=== PATIENT | male | born 1935 | race Caucasian/White ===

== ENCOUNTER 2016-09-16 21:29 | Inpatient (IN) | payer MEDICARE, OTHER ==
[~2016-09-16] VITALS: Ht 177.8 cm; Wt 95.4 kg
--- NOTE | ~2016-09-16 | HP ---
PATIENT'S NAME: MARIETTA JIMENEZ [facility] AGE: 81 Y [address] ROOM: [place] [address] LOCATION: GPCU ADMIT DATE: 09/17/2016 History & Physical DISCHARGE DATE: FAMILY PHYSICIAN: Joe Galeas MD ATTENDING PHYSICIAN: KOBE MOHR V DATE OF SERVICE: CHIEF COMPLAINT: Abdominal pain and rash. HISTORY OF PRESENT ILLNESS: The patient is an 81-year-old male whose troubles began after he had fish which he prepared with a seasoning that he has not used before. Several hours after he got the fish and prepared it, he developed colicky mid abdominal/epigastric abdominal pain with some nausea, but no vomiting. He also noted an urticarial rash developing over his abdomen, back, and distal lower extremities. He did not have any chest pain, shortness of breath, diarrhea, palpitations, or diaphoresis associated with this. He also denies any fevers. In the ER, the patient had a detailed workup. An ultrasound of his abdomen showed a large gallstone ball valving in and out with a dilated common bile duct with choledocholithiasis. He had a positive D-dimer and a CT of his chest to rule out pulmonary embolism demonstrated a possible right lingular PE. PAST MEDICAL HISTORY: Significant for benign prostatic hyperplasia with considerable symptoms, which has recently been surgically addressed. Also hypertension, a history of Tate's cyst. SURGERIES: Significant for multiple cystoscopies and prostatectomy. SOCIAL HISTORY: Negative for any active or significant past toxic habits. The patient is still quite active. FAMILY HISTORY: Reviewed and is noncontributory due to a known underlying etiology for his presentation. PATIENT'S NAME: MARIETTA JIMENEZ [facility] AGE: 81 Y [address] ROOM: [place] [address] LOCATION: GPCU ADMIT DATE: 09/17/2016 History & Physical DISCHARGE DATE: FAMILY PHYSICIAN: Joe Galeas MD ATTENDING PHYSICIAN: KOBE MOHR V CURRENT MEDICATIONS: Being compiled. REVIEW OF SYSTEMS: Subsequent to receiving IV contrast for his CAT scan, the patient did develop some hoarseness which is appreciable on exam. PHYSICAL EXAMINATION: VITAL SIGNS: His blood pressure is 110s/60s, heart rate is in the 80s, and saturating 94% on room air. GENERAL: Appears as a well-developed, well-nourished, elderly male, in no acute distress. ENT: No stridor and moist mucous membranes. NEUROLOGICAL: Exam is nonfocal. EYES: Exam shows pupils are equal and reactive to light. SKIN: Exam reveals diffuse confluent urticarial rash over his abdomen, back, distal lower extremities, as well as his shoulders. LUNGS: Exam reveals lungs are clear to auscultation bilaterally and no stridor. HEART: Exam reveals regular rate and rhythm without appreciable murmurs, gallops, or rubs. GI: Abdomen is soft. Slightly tender in right upper quadrant. Normoactive bowel sounds. No rebound tenderness or guarding. VASCULAR: Reveals 2+ pedal pulses. MUSCULOSKELETAL: Exam is unremarkable. PSYCHIATRIC: Exam reveals appropriate mood, cognition, and affect. LABORATORY DATA: Studies done in the ER are significant for lactate is 1.4. AST is 84. Two sets of cardiac enzymes are negative. White count is 13.8, hemoglobin is 16.5, platelets are 209. D-dimer is 1.44. Urinalysis is significant for 50 of blood. EKG shows normal sinus rhythm, slightly high R-waves in leads V2 and V3. Aside from that, EKG is unremarkable. CAT scan shows suspected acute pulmonary embolism within the segmental branch to the inferior segment of the lingula, this is in the area of motion artifact, therefore there is a possibility of false-positive; choledocholithiasis with bile duct dilatation. Additional incidental findings as above. A verbal report on the ultrasound shows a large stone in the gallbladder with choledocholithiasis and common bile duct dilatation. ASSESSMENT AND PLAN: This is an 81-year-old male who will be admitted with: 1. Findings of pulmonary embolism on the CT. At this point, I feel that the actual probability for a PE is quite low, as the patient has no symptoms, no tachycardia, no hypoxia, and his pain was never related to his chest. PATIENT'S NAME: MARIETTA JIMENEZ [facility] AGE: 81 Y [address] ROOM: [place] [address] [facility] ADMIT DATE: 09/17/2016 History & Physical DISCHARGE DATE: FAMILY PHYSICIAN: Joe Galeas MD ATTENDING PHYSICIAN: OKBE MOHR V He has been started on heparin though we will discontinue it and check a V/Q scan in the morning to correlate a possibility of PE to the area where it was noted on the CT. 2. Choledocholithiasis. We will hydrate the patient. At this point, he does not appear to be septic as his procalcitonin is negative. We will provide him with symptomatic support and request Gastroenterology consultation as well as General Surgery consultation in the morning for ERCP/cholecystectomy. 3. Allergic reaction. I believe the patient probably has a combination of an initial allergic urticarial rash from the seasoning and subsequent exacerbation caused by IV contrast. He has received Benadryl and Solu- Medrol in the ER and we will continue him on this regimen until his rash and hoarseness improved. He will be monitored in a progressive care unit with frequent vitals. We will also monitor for any evidence of stridor. If that does develop, we will treat him appropriately with epinephrine and support his airway. 4. Benign prostatic hypertrophy, addressed. 5. Deep venous thrombosis prophylaxis will be pharmacologic once a surgical course is established. Additional management will depend on a clinical course. Time dedicated to this patient's encounter is 35 minutes. MD MAMADOU FULLER/jhonnyl /[id number] D: T: 703 HISTORY & PHYSICAL
--- NOTE | ~2016-09-16 | OR ---
PATIENT'S NAME: MARIETTA JIMENEZ [facility] AGE: 81 Y [address] ROOM: [address] [address] LOCATION: GPCU ADMIT DATE: 09/17/2016 OR/Procedure Report DISCHARGE DATE: 09/21/2016 FAMILY PHYSICIAN: Joe Galeas MD ATTENDING PHYSICIAN: Tony Peraza V SURGEON: Aubrey Kurtz MD DOUGH BRAKER: Shad Mclean PA-C. DATE OF PROCEDURE: 09/20/2016 CORRECTED PATIENT ACCOUNT INFORMATION PER OPERATIONS 09/22/16 AO FAMILY PHYSICIAN: Joe Galeas MD PREOPERATIVE DIAGNOSES: 1. History of choledocholithiasis, status post ERCP. 2. Chronic cholecystitis and cholelithiasis. POSTOPERATIVE DIAGNOSES: 1. History of choledocholithiasis, status post ERCP. 2. Chronic cholecystitis and cholelithiasis. PROCEDURE PERFORMED: Laparoscopic cholecystectomy. ANESTHESIA: General with 30 mL of 0.5% Marcaine. SPECIMEN: Gallbladder with multiple stones. INDICATION: The patient is an 81-year-old gentleman, patient of Dr. Galeas'kirk, who was admitted to the hospital with gallbladder disease, was found to have choledocholithiasis, and underwent ERCP and extraction of the stone. He now presents for gallbladder removal as his ultrasound does show residual cholelithiasis. The patient was incidentally scheduled today for an incisional hernia repair of his umbilicus; however, the defect is large enough that it will require mesh placement, and we talked to the patient and will plan on performing gallbladder removal at this setting and delay the incisional hernia repair. DESCRIPTION OF PROCEDURE: After informed consent, the patient was taken to the operating room. After general endotracheal anesthesia, the patient's abdomen was prepped and draped into a sterile field. A time-out was performed. We identified the patient, planned procedure, and preop antibiotic administration. The incisional hernia at the umbilicus did reduce. In the epigastrium, above the fascial defect, we made a small incision after injection of local anesthetic, put a Veress needle through the fascia into the peritoneal cavity, created pneumoperitoneum, placed a 10 mm camera into the abdomen, and had safe entry. There was omentum up into the hernia sac. The remaining trocars were placed in standard position. The gallbladder was pale. PATIENT'S NAME: MARIETTA JIMENEZ [facility] AGE: 81 Y [address] ROOM: [place] [address] [facility] ADMIT DATE: 09/17/2016 OR/Procedure Report DISCHARGE DATE: 09/21/2016 FAMILY PHYSICIAN: Joe Galeas MD ATTENDING PHYSICIAN: Tony Peraza V It was a very fatty layered hepatoduodenal ligament which had to be carefully stripped down until we exposed the cystic duct and cystic artery. They were individually clipped x4 and divided with one clip remaining on the specimen side. The gallbladder was then removed from the liver bed with electrocautery and brought out through the supraumbilical incision. We irrigated until clear. Hemostasis noted. We repaired both midline fascial defects with 0 Vicryl, skin closed with subcuticular 4-0 Vicryl. Steri-Strips and sterile dressings applied. The patient tolerated the procedure well, transferred to the recovery room in stable condition. AUBREY KURTZ MD WTS/modl /[id number] CORRECTED PATIENT ACCOUNT INFORMATION PER OPERATIONS 09/22/16 AO d: 09/20/16 1806 t: 10/04/16 1741, OPERATIVE SUMMARY
--- NOTE | ~2016-09-16 | CON ---
PATIENT'S NAME: MARIETTA JIMENEZ [facility] AGE: 81 Y [address] ROOM: [place] [id number] LOCATION: GPCU ADMIT DATE: 09/17/2016 Consultation DISCHARGE DATE: FAMILY PHYSICIAN: Joe Galeas MD ATTENDING PHYSICIAN: KOBE MOHR V DATE OF CONSULTATION: 09/17/2016 REFERRING PHYSICIAN: Alton Mckeon MD REASON FOR CONSULTATION: Epigastric pain, dilated common bile duct, and abnormal LFTs liver function tests. HISTORY OF PRESENT ILLNESS: The patient is a pleasant 81-year-old white male, who presented to the Emergency Room yesterday with complaints of acute epigastric pain. The pain started at 6 p.m. last night. He remembers having some fried food prior to that. This was also accompanied by what he calls hives. This was essentially itching. There was no fever or chills. He had mild nausea, but no vomiting. He continued to have the pain and was brought to the hospital. He was sent for a higher level of care. He was found to have a dilated common bile duct to 17 mm. His LFTs liver function tests were also elevated. We have been consulted. PAST MEDICAL HISTORY: Significant for 1. Hypertension. 2. Gastroesophageal reflux disease. 3. Benign prostatic hypertrophy. 4. He did have E. coli sepsis in fall of 2015. This required prolonged hospitalization. PAST SURGICAL HISTORY: Significant for prostatectomy. This was a robotic-assisted laparoscopic prostatectomy. FAMILY HISTORY: Significant for hypertension in the family. SOCIAL HISTORY: Marital Status: He lives at his home with his . Occupational History: He has been a [employer]re[employer] throughout his life. PATIENT'S NAME: MARIETTA JIMENEZ [facility] AGE: 81 Y [address] ROOM: [address] [address] LOCATION: GPCU ADMIT DATE: 09/17/2016 Consultation DISCHARGE DATE: FAMILY PHYSICIAN: Joe Galeas MD ATTENDING PHYSICIAN: KOBE MOHR V ALLERGIES: TO IODINATED CONTRAST, SULFA, AND MORPHINE. CURRENT MEDICATIONS: Include 1. Irbesartan. 2. Amlodipine. 3. Ketoconazole cream. 4. Acetaminophen with codeine p.r.n. 5. Acetaminophen Extra Strength p.r.n. PHYSICAL EXAMINATION: GENERAL: He is alert and awake. He appears to be in no acute distress. His pain is rated at about 1. No pallor. No icterus. VITAL SIGNS: Showed temperature of 98.3, pulse of 98, respiratory rate of 18, and blood pressure of 152/74. HEAD AND ENT: Oral cavity is normal. Nasal passages are clear. NECK: Supple. No masses are felt. No thyromegaly is felt. CARDIOVASCULAR: S1 and S2. No carotid bruits are heard. CHEST: Clear to auscultation bilaterally. No wheezing. No rhonchi. ABDOMEN: He has a fairly significant umbilical hernia. It does not seem to be incarcerated. He is tender in the epigastrium. There is no rigidity, guarding, or rebound. MUSCULOSKELETAL: No obvious deformities were seen. NEUROLOGICAL: Grossly nonfocal. LABORATORY DATA AND DIAGNOSTIC STUDIES: Abdominal ultrasound showed cholelithiasis with a large 3-cm mobile stone. Common bile duct was dilated to 17 mm. Choledocholithiasis is also a possibility. He did have a PE pulmonary embolism protocol CT done. Initially, it was negative for pulmonary embolism. However, when we discussed this further with the radiologist, it appears he does have documented CBD common bile duct stones on the CT scan. I had ordered an MRCP initially, but this was canceled in view of this finding. His white cell count WBC is 17.3, hemoglobin is 17.4, hematocrit is 51.7, and platelet count is 217. Sodium of 141, potassium of 4.1, chloride of 107, bicarbonate of 21, BUN of 23, creatinine of 1.2, total bilirubin of 3.0, ALT of 266, AST of 269, and alkaline phosphatase of 103. UA urinalysis with microscopy showed 2 to 5 wbc's. PATIENT'S NAME: MARIETTA JIMENEZ [facility] AGE: 81 Y [address] ROOM: [place] [address] LOCATION: GPCU ADMIT DATE: 09/17/2016 Consultation DISCHARGE DATE: FAMILY PHYSICIAN: Joe Galeas MD ATTENDING PHYSICIAN: KOBE MOHR V CK-MB was negative. ProBNP is less than 0.29. Helicobacter pylori is positive. IMPRESSION AND RECOMMENDATIONS: The patient has a history of gallstone. Now presenting with a dilated common bile duct. The CT findings are consistent with common bile duct stones. In view of this, the patient will be requiring an ERCP endoscopic retrograde cholangiopancreatography. The procedure of ERCP endoscopic retrograde cholangiopancreatography was explained in detail to the patient. All the risks including, but not limited to bleeding, infection, and possible need for surgery were explained. Acute pancreatitis was also explained as well as the risk of anesthesia was explained. Informed consent was then obtained. We will be proceeding with an ERCP endoscopic retrograde cholangiopancreatography by Dr Velez. Patient aware of this. SHANELF MD EMANI BILLINGS/kaylen /[id number] d: 09/17/162030 t: 09/18/16 1552, CONSULTATION REPORT
--- NOTE | ~2016-09-16 | DS ---
PATIENT'S NAME: MARIETTA JIMENEZ [facility] AGE: 81 Y [address] ROOM: [id number] [place], [place] [address] LOCATION: GPCU ADMIT DATE: 09/17/2016 Discharge Summary DISCHARGE DATE: 09/21/2016 FAMILY PHYSICIAN: Joe Galeas MD ATTENDING PHYSICIAN: Tony Peraza V PRINCIPAL DISCHARGE DIAGNOSIS: Choledocholithiasis. SECONDARY DIAGNOSES: 1. Cholecystitis, chronic. 2. Abdominal pain. 3. Rash. 4. Allergic reaction to morphine. 5. Elevated D-dimer at 1.44. 6. Negative CT/PE protocol. 7. Hypertension. 8. Benign prostatic hypertrophy. 9. Gastroesophageal reflux disease. CONSULTATIONS: 1. Gastroenterology, Dr. Ace, on 09/17/2016. 2. General Surgery, 09/17/2016, Dr. Washington. PROCEDURES: 1. Laparoscopic cholecystectomy on 09/20/2016. 2. ERCP on 09/18/2016 large ampulla stone extracted, dilated common bile duct with wide sphincterotomy done, free drainage was noted, and no immediate complications. BRIEF HISTORY: Mr. Jimenez is a very pleasant 81-year-old male who remains very active. He reports that he became ill after eating fish that he prepared with a new seasoning, he developed abdominal pain, mostly in the epigastrium, with nausea, but no vomiting, and also developed an urticarial rash over his lower abdomen, back, and distal lower extremities. He presented to the emergency room, where an ultrasound of the abdomen showed a large gallstone valving in and out with a dilated common bile duct and choledocholithiasis. There was some initial suspicion for PE on his CT; however, he is low probability and was reread and confirmed by the radiologist as negative. He was seen by Dr. Ace for his bile duct stone. The patient did well after the sphincterotomy and continued on Levaquin and Flagyl. He was taken for a lap issa on 09/20/2016 and did very well. Yesterday PATIENT'S NAME: MARIETTA JIMENEZ [facility] AGE: 81 Y [address] ROOM: [id number] [place], [place] [address] LOCATION: GPCU ADMIT DATE: 09/17/2016 Discharge Summary DISCHARGE DATE: 09/21/2016 FAMILY PHYSICIAN: Joe Galeas MD ATTENDING PHYSICIAN: Tony Peraza V afternoon, after the surgery, he was eating a regular diet and planned to walk in the [place]. He stayed afebrile with vital signs stable and ready to go home. His white blood cell count yesterday was 7.8 with hemoglobin of 14.2, hematocrit 43.9, and platelets 147,000. His electrolytes showed sodium 140, potassium 3.9, chloride 109, CO2 25, BUN 17, creatinine 0.8, eGFR greater than 60, glucose 97, his ALT was 93 whereas his AST was 23, and his alkaline phosphatase was 68. The patient is ready for discharge. INSTRUCTIONS AT DISCHARGE: 1. Diet: Heart healthy. I did advise also that he should avoid alcohol intake if he is going to take Tylenol. 2. Activity: No lifting greater than 20 pounds for 3 weeks. He can remove his dressing in 2-3 days. 3. He is to follow up with Dr. Washington in 10 days. He has an appointment at 9:45 on 10/02/2016. 4. He is to see Dr. Joe Galeas within 1 week from discharge. 5. I explained to him he should call Dr. Galeas or Dr. Washington if he develops fever, chills, or sweats. MEDICATIONS AT DISCHARGE: 1. Amlodipine 5 mg p.o. daily. 2. Nizoral cream applied to his forehead rash daily. 3. Pantoprazole 40 mg p.o. daily, he can stop this in 30 days if he does not need this for his GERD or continue it as per his PCP. 4. Avapro 300 mg p.o. at h.s. 5. Tylenol p.r.n. for pain with the caveat of avoiding with alcohol and surgeons gave him a prescription for Kelford 5/325 1-2 p.o. every 4 hours, #30, no refills. CONDITION AT DISCHARGE: Good. Less than 30 minutes was spent on total discharge with examining the patient etc. LES CHAMPAGNE MD LM/kaylen PATIENT'S NAME: MARIETTA JIMENEZ [facility] AGE: 81 Y [address] ROOM: [place] [address] [facility] ADMIT DATE: 09/17/2016 Discharge Summary DISCHARGE DATE: 09/21/2016 FAMILY PHYSICIAN: Joe Galeas MD ATTENDING PHYSICIAN: Tony Peraza V /[id number] d: 09/22/16 0501 t: 09/25/16 1425, DISCHARGE SUMMARY
--- NOTE | ~2016-09-16 | CON ---
PATIENT'S NAME: MARIETTA JIMENEZ [facility] AGE: 81 Y [address] ROOM: [place] [address] LOCATION: GPCU ADMIT DATE: 09/17/2016 Consultation DISCHARGE DATE: FAMILY PHYSICIAN: Joe Galeas MD ATTENDING PHYSICIAN: KBOE MOHR V DATE OF CONSULTATION: 09/18/2016 REFERRING PHYSICIAN: Alton Mckeon MD REASON FOR CONSULTATION: Choledocholithiasis. HISTORY OF PRESENT ILLNESS: Marietta is an 81-year-old male who states that he developed epigastric abdominal pain after eating fried fish. He denies any nausea or vomiting. Denies any jaundice. The patient presented to the emergency room on the evening of September 16. Evaluation included lab work that showed a white blood cell count mildly elevated at 13.8. Total bilirubin 1.2, alkaline phosphatase 87, AST 84, ALT 52. The patient had an ultrasound of the abdomen done that showed a large mobile 3 cm gallstone. Gallbladder wall thickening at 5 mm with no pericholecystic fluid seen. The biliary tree was abnormal with dilated common bile duct measuring 17 mm. Pancreas was obscured by bowel gas. His amylase, lipase were normal. The patient was admitted under the care of the hospitalist and Gastroenterology was consulted. Plans for an MRCP were made, but the patient subsequently had a CT of the chest and according to Dr. Ace's notes, there was concern for choledocholithiasis and therefore MRCP was not performed. Arrangements were made for an ERCP today and General Surgery was consulted. The patient states that he has seen Dr. Washington recently for an umbilical hernia. The umbilical hernia was repaired previously by Dr. Dennison at the time of his prostate surgery. The patient is actually scheduled for an incisional hernia repair on September 20 at [facility]. The patient denies any prior issues with abdominal pain, nausea, vomiting, bloating, jaundice etc. He has had prior abdominal procedures including the robotic-assisted laparoscopic simple prostatectomy with umbilical hernia repair and appendectomy. PAST MEDICAL HISTORY: ALLERGIES: INCLUDE CONTRAST MEDIA, SULFA, AND MORPHINE. MEDICATIONS: PATIENT'S NAME: MARIETTA JIMENEZ [facility] AGE: 81 Y [address] ROOM: [place] [id number] LOCATION: GPCU ADMIT DATE: 09/17/2016 Consultation DISCHARGE DATE: FAMILY PHYSICIAN: Joe Galeas MD ATTENDING PHYSICIAN: KOBE MOHR V Medications at home include; 1. Tylenol extra-strength. 2. Tylenol with codeine. 3. Norvasc 5 mg p.o. at bedtime. 4. Avapro 300 mg p.o. q.p.m. 5. Nizoral cream 30 g one applicator topically daily. ILLNESSES: Include hypertension, benign prostatic hyperplasia, and history of Tate's cyst. OPERATIONS: Include robotic-assisted laparoscopic prostatectomy, multiple cystoscopies, appendectomy, and colonoscopy. SOCIAL HISTORY: The patient is . Lives in [place]. He quit smoking 60 years ago. He consumes alcohol approximately two alcoholic beverages per night. FAMILY HISTORY: Father from myocardial infarction. Mother after having a lung nodule biopsied which apparently was negative for cancer. REVIEW OF SYSTEMS: Per HPI. PHYSICAL EXAMINATION: VITAL SIGNS: Temperature is 98.0, blood pressure 149/77, pulse 74, respirations 22. GENERAL: An 81-year-old male who is alert, oriented, pleasant, cooperative. EYES EARS, NOSE, AND THROAT: Showed poor dentition. LUNGS: Clear. HEART: Regular. ABDOMEN: Has active bowel sounds. Abdomen is soft, nontender in the epigastric right upper quadrant. He does have scars consistent with his prior robotic prostatectomy. He has a midline incision near the umbilicus which shows an incisional hernia with the fascial defect of approximately 4 to 5 cm. Soft, reducible. EXTREMITIES: The patient appears to move his extremities equally. LABORATORY DATA: Lab work today shows white blood cell count 13.5, hemoglobin 14.1, hematocrit 42.5, platelets a 163, his white blood cell count had increased to 17.3 yesterday. CMS shows sodium 141, potassium 4.4, chloride 108, CO2 24, glucose 149, BUN 26, creatinine 1.0. Total bilirubin is down to 1.5 from 3.0 PATIENT'S NAME: MARIETTA JIMENEZ [facility] AGE: 81 Y [address] ROOM: [id number] [place], [place] [address] LOCATION: GPCU ADMIT DATE: 09/17/2016 Consultation DISCHARGE DATE: FAMILY PHYSICIAN: Joe Galeas MD ATTENDING PHYSICIAN: KOBE MOHR V yesterday, alkaline phosphatase is 77, compared to 103, yesterday, AST is 105 compared to 369 yesterday, and ALT is 215 compared to 266. Again, amylase was 41, lipase 100. ASSESSMENT: An 81-year-old male with: 1. Choledocholithiasis. 2. Incisional hernia at the umbilicus. PLAN: I discussed with the patient the findings on the ultrasound and CT along with lab work. I discussed the plan for an ERCP today with Dr. Ace. I discussed the indications to remove the gallbladder in order to prevent this from happening again in the future. I discussed the operation along with risks of bleeding, infection, injury to other structures, heart problems, lung problems etc. I discussed that most likely, we would not fix the incisional hernia at this time as this will require mesh and we did not want the mesh to be seated with infection from the gallbladder. Dr. Washington then evaluated the patient and agreed that we should proceed with the gallbladder first with plans to repair the incisional hernia in approximately one month once he is recovered and healed up. The patient was in understanding and agreement. We will plan to proceed with laparoscopic cholecystectomy on September 20, 2016. We will delay the incisional hernia for approximately one month. Dr. Washington evaluated the patient, was involved in the assessment and plan, and was available for supervision. JONATHAN AYOUB PA-C FOR MD JUDITH WOLFF/kaylen /[id number] d: 09/18/162127 t: 10/04/16 1743, CONSULTATION REPORT
--- NOTE | ~2016-09-16 | ER ---
PATIENT'S NAME: MARIETTA JIMENEZ [facility] AGE: 81 Y [address] ROOM: [place] [address] LOCATION: [facility] ADMIT DATE: 09/16/2016 ER/Outpatient Report DISCHARGE DATE: FAMILY PHYSICIAN: Joe Galeas MD ATTENDING PHYSICIAN: Darell Limon Admission date and time are documented in the medical record. I saw the patient at 2150 hours. CHIEF COMPLAINT: Epigastric pain. HISTORY OF PRESENT ILLNESS: The patient is an 81-year-old male who came in with epigastric pain for about 3 hours with acute onset. Some mild nausea, but no vomiting. No diarrhea. Does not radiate through to his back. No chest pain or shortness of breath. He has a little bit of heartburn reflux sensation. Does have a history of hypertension, but no history of known coronary artery disease, congestive heart failure. No history of lung problems with asthma or COPD. I think the patient thinks he may have gallstones. No lightheadedness, dizziness, syncope, or near syncope. No fall or trauma. No headache, eyes, ears, nose, throat, neck, or spine pain. No recent colds, coughs, flus, fever, chills, or sweats. No joint or muscle swelling, redness, or pain. The patient does have urticarial rash in his left axilla radiating down the lateral aspect of his left chest wall. The patient states that he ate fish tonight and he put some type of seasoning on the fish that he has never used before and he thinks he may have allergic reaction to that. No history of neuro changes, psych issues, or endocrine problems. HOME MEDICATIONS: See attached medication list. ALLERGIES: SULFA. SOCIAL HISTORY: Nonsmoker. Does drink alcohol on a fairly regular basis. SIGNIFICANT PAST MEDICAL HISTORY: Hypertension, urosepsis, and benign prostatic hypertrophy. OPERATIONS: Right shoulder surgery, appendectomy, cystoscopy, prostatectomy, and umbilical herniorrhaphy. PATIENT'S NAME: MARIETTA JIMENEZ [facility] AGE: 81 Y [address] ROOM: [place] [address] LOCATION: [facility] ADMIT DATE: 09/16/2016 ER/Outpatient Report DISCHARGE DATE: FAMILY PHYSICIAN: Joe Galeas MD ATTENDING PHYSICIAN: Darell Limon REVIEW OF SYSTEMS: All systems reviewed by me are negative with the exception of those discussed in the history of the present illness. PHYSICAL EXAMINATION: VITAL SIGNS: Temperature 98, pulse 74, respirations 16, blood pressure 201/101, and O2 sat on room air is 93%. HEAD: Normocephalic. EYES, EARS, NOSE, THROAT: Clear. Mucous membranes moist. NECK: Negative. SPINE: Negative. LUNGS: Clear. No rales, rhonchi, or wheezes. HEART: Regular. Pulses are palpable. No chest wall or ribcage pain to palpation. ABDOMEN: Soft. Epigastric tenderness to palpation. No true guarding or rigidity. No rebound tenderness. No distention. Bowel tones present. No organomegaly or abnormal mass palpable. EXTREMITIES: No peripheral edema, cyanosis, or deformity. NEUROVASCULAR: Intact. SKIN: The patient has urticarial rash on the left lateral chest wall up into the axilla, pruritic. LABORATORY DATA: EKG showed sinus rhythm. No acute ST-elevation, ischemic change, or arrhythmia x2, 2 hours apart. Cardiac enzymes were normal x2, 2 hours apart. CPK was normal x2, 2 hours apart. Urine showed 2-5 whites, 10-20 reds, 0-2 epithelial cells, negative bacteria, 1+ mucus per high-powered field, negative nitrites, and 30 protein on dipstick. Chest x-ray showed no acute infiltrate or changes. We will review x-ray with the radiologist. Procalcitonin was less than 0.05. CRP was less than 0.29. Pro-BNP was 222. H. pylori was positive. CMS was normal except for an elevated glucose 141, elevated AST of 84, magnesium was 2.0. D-dimer was elevated at 1.44. White count was 13,800, 75 segs, 14 lymphs, 9 monos, 1 eo, hemoglobin is 16.5 with hematocrit 51.0, and platelet count is 209,000. PTT was 25. Pro-time is 10.7 with an INR 1.0. Lactate was 1.4. I went ahead with ultrasound of the gallbladder that showed a large stone ball valving in the gallbladder with some mildly thickened gallbladder wall. No pericholecystic fluid. Common duct was dilated. See Radiology report. We did go ahead because of the elevated D-dimer with a CT scan of the chest with PE protocol. The radiologist read it out as suspected acute pulmonary embolism within the segmental branch of the inferior segment of the lingula. Also, there was choledocholithiasis with bile duct dilatation. See dictated transcribed report. EMERGENCY DEPARTMENT COURSE: I did start the patient on IV normal saline, fluids. I did give him morphine PATIENT'S NAME: MARIETTA JIMENEZ [facility] AGE: 81 Y [address] ROOM: [place], [place] [address] LOCATION: [facility] ADMIT DATE: 09/16/2016 ER/Outpatient Report DISCHARGE DATE: FAMILY PHYSICIAN: Joe Galeas MD ATTENDING PHYSICIAN: Darell Limon for pain, Zofran for nausea, Benadryl for the rash and pruritus, Solu-Medrol for the rash and pruritus, and Protonix 40 mg for his abdominal pain. IMPRESSION: 1. Epigastric pain, most likely secondary to choledocholithiasis, cholelithiasis, thickened gallbladder wall, with a large stone ball valving in the gallbladder neck. The patient had positive gallbladder ultrasound and positive CT scan. 2. Pulmonary embolism with shortness of breath. Positive CT scan with pulmonary embolus protocol of the chest. 3. Urticarial hives, etiology uncertain, but possibly related to some seasoning use on some fish that he ate tonight. 4. Positive H. pylori, may have possible peptic ulcer disease or gastritis. 5. Hypertension. 6. Recent history of urosepsis, no evidence of infective processes on evaluation tonight. PLAN: Discussed the patient with Dr. Peraza, hospitalist. Dr. Peraza had come into the emergency room to evaluate the patient and we will place the patient in the hospital. I did start the patient on heparin IV per PE protocol. I did give the patient some Protonix for his stomach problems. Question would be whether he needs to be on some antibiotics because of his positive H. pylori test. Most likely, we will need to have some type of procedure such as an ERCP and cholecystectomy. Continue treatment of his hypertension. We will hydrate the patient and use morphine for pain. Discussion ensued with the patient concerning my findings and recommendations, he understands. MD NAFISA SHEN/kaylen /[id number] d: 09/17/16 0219 t: 09/17/16 1812, OUTPATIENT REPORT
[~2016-09-16 21:29] MED LIST: ALEVE220 MG PO; AUGMENTIN500 MG PO; AUGMENTIN875 MG PO; AVAPRO300 MG PO; CEFTIN500 MG PO; CIPRO500 MG PO; COLACE100 MG PO; FLOMAX0.4 MG PO; FLORASTOR250 MG PO; KEFLEX250 MG PO; KEFLEX500 MG PO; MILK OF MA400 MG/5 M PO; NEOSPORIN1 PKT TOP; NIZORAL30 GM TOP; NORCO 5-325 MG1 TAB PO; NORVASC5 MG PO; PRILOSEC20 MG PO; TYLENOL325 MG PO
[2016-09-16 21:50] LABS: BASOPHIL % 0.3 %; EOSINOPHIL # 0.1 K/uL (0.0-0.5); EOSINOPHIL % 0.9 %; HEMOGLOBIN 16.5 g/dL (11.0-16.0); IMMATURE GRANULOCYTE # 0.1 K/uL (0.0-0.3); IMMATURE GRANULOCYTE % 0.5 %; LYMPHOCYTE % 14.2 %; MCH 28.4 pg (27.0-34.0); MCHC 32.4 gm/dL (32.0-36.5); MCV 87.8 fl (83.0-98.0); MONOCYTE # 1.2 K/uL (0.0-1.0); MONOCYTE % 8.7 %; MPV 8.7 fl (9.4-12.4); NEUTROPHIL # (ANC) 10.4 K/uL (1.4-9.0); NEUTROPHIL % 75.4 %; NRBC % 0 /100WBC (0-0.00); PLATELET COUNT 209 K/uL (150-450); RBC 5.81 M/uL (3.50-5.50); RDW-CV 14.4 % (11.9-14.6); WBC 13.8 K/uL (4.0-11.0)
[2016-09-16 22:00] LABS: PROTIME 10.7 SECONDS (9.6-11.1); PTT 25 SECONDS (25-32)
[2016-09-16 22:11] LABS: ALBUMIN 3.6 gm/dL (3.5-5.0); ALK PHOS 87 IU/L (33-138); ALT 52 IU/L (12-78); ANION GAP 15.2 (10.0-19.0); AST 84 IU/L (10-40); BLOOD UREA NITROGEN 19 mg/dL (6-24); CALCIUM 8.7 mg/dL (8.5-10.5); CHLORIDE 106 mMol/L (96-110); CO2 26 mMol/L (22-32); CPK 116 IU/L (35-332); CREATININE 1.1 mg/dL (0.6-1.3); ESTIMATED GFR (MDRD EQUATION) > 60; POTASSIUM 4.2 mMol/L (3.7-5.1); SODIUM 143 mMol/L (135-145); TOTAL BILIRUBIN 1.2 mg/dL (0.0-1.5); TOTAL PROTEIN 7.6 g/dL (6.0-8.4)
[2016-09-17 00:11] LABS: CPK 91 IU/L (35-332)
[2016-09-17 00:16] LABS: BILIRUBIN URINE NEGATIVE (NEGATIVE); BLOOD URINE 50 /UL (NEGATIVE); COLOR URINE YELLOW (YELLOW); GLUCOSE URINE NEGATIVE (NEGATIVE); KETONE URINE NEGATIVE (NEGATIVE); LEUKOCYTES URINE 25 /UL (NEGATIVE); NITRITE URINE NEGATIVE (NEGATIVE); PROTEIN URINE 30 mg/dL (NEGATIVE); SPEC GRAVITY URINE 1.015 (1.003-1.035); TURBIDITY URINE CLEAR (CLEAR); UROBILINOGEN URINE 4 mg/dL (NORMAL)
[2016-09-17 00:19] LABS: BACTERIA URINE NEGATIVE (NEGATIVE); EPITHELIAL URINE 0-2 #/HPF (NEGATIVE); HYALINE CAST URINE RARE #/LPF (NEGATIVE); MUCUS URINE 1+ (NEGATIVE)
--- NOTE | 2016-09-17 03:52 | NUR ---
PT ARRIVED FROM ED VIA WC ON 2L O2. VSS afebrile. hg/wt taken. upon skin assessment pt present with hives again. hives to bilat feet, backs of bilat arms, chest, ribs, and bilat groins-md ronquillo notified. large umbilical hernia present. bowel sounds active and present.
[2016-09-17 04:51] LABS: HEMATOCRIT 51.7 % (33.0-50.0); HEMOGLOBIN 17.4 g/dL (11.0-16.0); MCH 29.2 pg (27.0-34.0); MCHC 33.7 gm/dL (32.0-36.5); MCV 86.9 fl (83.0-98.0); MPV 8.6 fl (9.4-12.4); PLATELET COUNT 217 K/uL (150-450); RBC 5.95 M/uL (3.50-5.50); RDW-CV 14.5 % (11.9-14.6)
[2016-09-17 04:53] LABS: WBC 17.3 K/uL (4.0-11.0)
[2016-09-17 05:09] LABS: ALBUMIN 3.2 gm/dL (3.5-5.0); ANION GAP 17.1 (10.0-19.0); CALCIUM 8.5 mg/dL (8.5-10.5); CREATININE 1.2 mg/dL (0.6-1.3); MAGNESIUM 1.9 mg/dL (1.3-2.6); PHOSPHORUS 3.6 mg/dL (2.5-4.9); POTASSIUM 4.1 mMol/L (3.7-5.1); TOTAL PROTEIN 6.7 g/dL (6.0-8.4)
[2016-09-17 05:25] LABS: ABSOLUTE NEUTROPHIL CT (ANC) 16.1 K/uL (1.4-9.0); BANDED NEUTROPHIL # 3.1 K/uL (0.0-0.1); BANDED NEUTROPHILS % 18 %; LYMPHOCYTE # 0.2 K/uL (0.8-4.0); LYMPHOCYTE % 1 %; SEGMENTED NEUTROPHIL % 75 %
--- NOTE | 2016-09-17 05:36 | NUR ---
PT ARRIVED FROM ED FOR ABD PAIN-GALL STONES AND HIVES. VSS ON 2L, AFEBRILE. PT STATES HIVES WERE STARTING TO GO AWAY IN ED, CAME BACK POST CT ABD/CHEST OR MORPHINE (NOT SURE WHAT MADE THEM COME BACK), GIVEN BENADRYL (HAS RECEIVED 100MG SINCE COMING TO ED), SOLUMEDEROL (185 SINCE COMING TO ED), PROTONIX, AND PEPCID FOR ALLERGIC REACTION OF UNKOWN ORIGIN. PT STATES HE COOKED DINNER WITH NEW SEASONING AND POST DINNER HAD ABD PAIN AND HIVES. PT ARRIVED TO FLOOR AND STATED HIVES WERE COMING BACK AND WAS STARTING TO ITCH ALL OVER- MD MADE AWARE MEDS GIVEN PER ORDERS. PT WAS ON HEPARIN GTT FOR PE PROTOCOL-WAS D/C'D UNCLEAR CT CHEST- PT TO HAVE VQ SCAN TODAY. TO HAVE DOPPLERS WELL TO R/O DVT. CON'T ON NS AT 100 IN LAC IV. STAND AT BEDSIDE TO URINATE-HAS NOT VOIDED FOR ME. LARGE UMBILICAL HERNIA PRESENT. NPO PLAN: GI CONSULT POSSIBLE ERCP
[2016-09-17] MEDS ORDERED: TYLENOL EXTRA500 MG PO (09:10)
[2016-09-17] MEDS ORDERED: TYLENOL WITH C1 EACH PO (09:10)
--- NOTE | 2016-09-17 17:33 | NUR ---
PATIENT IS PLANNING TO HAVE AN ERCP IN AM. IS ABLE TO HAVE A CLEAR LIQUID DIET UNTIL 0400 09/18/16. PATIENT IS UP WITH 1 ASSIST.
[2016-09-18 03:51] LABS: HEMATOCRIT 42.5 % (33.0-50.0); HEMOGLOBIN 14.1 g/dL (11.0-16.0); MCH 29.1 pg (27.0-34.0); MCHC 33.2 gm/dL (32.0-36.5); MCV 87.6 fl (83.0-98.0); MPV 8.8 fl (9.4-12.4); PLATELET COUNT 163 K/uL (150-450); RBC 4.85 M/uL (3.50-5.50); RDW-CV 14.7 % (11.9-14.6); WBC 13.5 K/uL (4.0-11.0)
[2016-09-18 04:08] LABS: ALBUMIN 2.9 gm/dL (3.5-5.0); ALK PHOS 77 IU/L (33-138); ALT 215 IU/L (12-78); ANION GAP 13.4 (10.0-19.0); AST 105 IU/L (10-40); BLOOD UREA NITROGEN 26 mg/dL (6-24); CALCIUM 8.1 mg/dL (8.5-10.5); CHLORIDE 108 mMol/L (96-110); CO2 24 mMol/L (22-32); ESTIMATED GFR (MDRD EQUATION) > 60; POTASSIUM 4.4 mMol/L (3.7-5.1); SODIUM 141 mMol/L (135-145); TOTAL PROTEIN 6.1 g/dL (6.0-8.4)
[2016-09-18 04:09] LABS: TOTAL BILIRUBIN 1.5 mg/dL (0.0-1.5)
[2016-09-18 04:58] LABS: ABSOLUTE NEUTROPHIL CT (ANC) 12.2 K/uL (1.4-9.0); BANDED NEUTROPHIL # 4.7 K/uL (0.0-0.1); BANDED NEUTROPHILS % 35 %; LYMPHOCYTE # 0.9 K/uL (0.8-4.0); LYMPHOCYTE % 7 %; MONOCYTE # 0.4 K/uL (0.0-1.0); SEGMENTED NEUTROPHIL # 7.4 K/uL (1.4-9.0); SEGMENTED NEUTROPHIL % 55 %
--- NOTE | 2016-09-18 05:12 | NUR ---
pt slept throughout night. vss on ra. afebrile. extrememly [place]. NS at 100 to LAC. Flagyl and levaquin. no c/o pain, no hives/rash noticed this shift Plan: ERCP at 11- Velez needs to to r/b-consents not signed.
--- NOTE | 2016-09-18 17:07 | NUR ---
PATIENT HAD ERCP THIS AM. DR KURTZ PLANS FOR LAP OMKAR ON SUNDAY. SOFT DIET ORDERED FOR NOW. DR CHAMPAGNE AWARE OF SBP 160-180. IV LASIX GIVEN X1. SCDS APPLIED TO BILAT LOWER LEGS. LABS ORDERED FOR AM.
--- NOTE | 2016-09-19 04:21 | NUR ---
A/O. HR 60s. SBP 140s. ROOM AIR. AFEBRILE. NS RUNNING AT 100ML/HR. SM BMx1. DENIES PAIN. SBA TO BATHROOM. PALN FOR LAP OMKAR SUNDAY.
[2016-09-19 04:22] LABS: BASOPHIL % 0.1 %; HEMATOCRIT 39.7 % (33.0-50.0); HEMOGLOBIN 12.7 g/dL (11.0-16.0); IMMATURE GRANULOCYTE # 0.1 K/uL (0.0-0.3); IMMATURE GRANULOCYTE % 0.7 %; LYMPHOCYTE # 0.9 K/uL (0.8-4.0); LYMPHOCYTE % 9.6 %; MCH 28.6 pg (27.0-34.0); MCV 89.4 fl (83.0-98.0); MONOCYTE # 0.7 K/uL (0.0-1.0); MONOCYTE % 7.2 %; MPV 9.7 fl (9.4-12.4); NEUTROPHIL % 82.4 %; NRBC % 0 /100WBC (0-0.00); PLATELET COUNT 139 K/uL (150-450); RBC 4.44 M/uL (3.50-5.50); RDW-CV 14.6 % (11.9-14.6); WBC 9.7 K/uL (4.0-11.0)
[2016-09-19 04:47] LABS: ALBUMIN 2.6 gm/dL (3.5-5.0); ALK PHOS 68 IU/L (33-138); ALT 125 IU/L (12-78); ANION GAP 12.2 (10.0-19.0); AST 40 IU/L (10-40); BLOOD UREA NITROGEN 23 mg/dL (6-24); CALCIUM 7.7 mg/dL (8.5-10.5); CHLORIDE 109 mMol/L (96-110); CO2 25 mMol/L (22-32); CREATININE 0.9 mg/dL (0.6-1.3); ESTIMATED GFR (MDRD EQUATION) > 60; POTASSIUM 4.2 mMol/L (3.7-5.1); SODIUM 142 mMol/L (135-145); TOTAL PROTEIN 5.8 g/dL (6.0-8.4)
[2016-09-19 04:49] LABS: TOTAL BILIRUBIN 0.6 mg/dL (0.0-1.5)
--- NOTE | 2016-09-19 14:30 | NUR ---
Introduced self and role of care management to patient. [place]. He says his daughter calls him everyday from [place] and a son lives about 6 miles from him. Has a walker in his room and asked him if using a walker. He says they have with him here, but he does not think he needs a walker at home. He says he is having surgery tomorrow and hopes to go home on . Will follow.
--- NOTE | 2016-09-19 17:08 | NUR ---
Significant Event: A/O X 3. SBP 130S TO 140S. HR 50S TO 60S. RA. DENIES PAIN. AMBULATED IN HALLWAYS INDEPENDENTLY. IV TO LEFT AC. NS RUNNING AT 100ML/HR. BM X 1. NPO AFTER MIDNIGHT. Follow up: PLAN FOR A LAP OMKAR TOMORROW.
[2016-09-20 03:39] LABS: BASOPHIL % 0.1 %; EOSINOPHIL # 0.1 K/uL (0.0-0.5); EOSINOPHIL % 1.4 %; HEMATOCRIT 43.9 % (33.0-50.0); HEMOGLOBIN 14.2 g/dL (11.0-16.0); IMMATURE GRANULOCYTE % 0.5 %; LYMPHOCYTE # 1.4 K/uL (0.8-4.0); LYMPHOCYTE % 18.1 %; MCH 28.6 pg (27.0-34.0); MCHC 32.3 gm/dL (32.0-36.5); MCV 88.3 fl (83.0-98.0); MONOCYTE # 0.7 K/uL (0.0-1.0); MONOCYTE % 9.5 %; MPV 9.1 fl (9.4-12.4); NEUTROPHIL # (ANC) 5.5 K/uL (1.4-9.0); NEUTROPHIL % 70.4 %; NRBC % 0 /100WBC (0-0.00); PLATELET COUNT 147 K/uL (150-450); RBC 4.97 M/uL (3.50-5.50); RDW-CV 14.6 % (11.9-14.6); WBC 7.8 K/uL (4.0-11.0)
[2016-09-20 04:04] LABS: ALBUMIN 2.8 gm/dL (3.5-5.0); ALK PHOS 68 IU/L (33-138); ALT 93 IU/L (12-78); ANION GAP 9.9 (10.0-19.0); AST 23 IU/L (10-40); BLOOD UREA NITROGEN 17 mg/dL (6-24); CALCIUM 8.1 mg/dL (8.5-10.5); CHLORIDE 109 mMol/L (96-110); CO2 25 mMol/L (22-32); CREATININE 0.8 mg/dL (0.6-1.3); ESTIMATED GFR (MDRD EQUATION) > 60; POTASSIUM 3.9 mMol/L (3.7-5.1); SODIUM 140 mMol/L (135-145); TOTAL BILIRUBIN 0.5 mg/dL (0.0-1.5); TOTAL PROTEIN 6.3 g/dL (6.0-8.4)
--- NOTE | 2016-09-20 04:35 | NUR ---
A/O. HR 50-60s. SBP 130-170s. ROOM AIR. SBA. VOIDS PER URINAL. 100ML/HR NS. LAP OMKAR TODAY. NPO SINCE [place]. WOULD LIKE A SHOWER BEFORE PROCEDURE. DENIES PAIN.
--- NOTE | 2016-09-20 16:55 | NUR ---
PATIENT IS A/O X 3. VVS. ON RA. UP THE BATHROOM WITH STAND BY ASSIST. HAD A LAP OMKAR. TOLERATING CLEAR FLUIDS. UP TO CHAIR THIS AFTERNOON. TYLENOL GIVEN AT 1600 FOR ABDOMINAL PAIN WITH PARTIAL RELIEF. PATIENT REPORTS DOCTOR PLANS ON DISCHARGING HIM FIRDAY.
--- NOTE | 2016-09-21 05:22 | NUR ---
Patient A/Ox3. VSS on RA. Lungs clear. Bowel sounds present. Abdomen round/soft. Incisions CDI. Eating well no nausea. Tylenol x1 with relief noted. Ambulated in halls. Possible home today.
--- NOTE | 2016-09-21 13:00 | NUR ---
Patient hopes to go home today. He is waiting on doctor to round. Says he has walked a couple of loops in the hallway. He is using a walker here but is adamant he will not need a walker at home. Nurse says he is steady and can probably get along without a walker. Talked about options for where he could get a walker. He says if he get home and decides he wants one he has a friend he will call and she will get him one. Denies discharge needs at this time. Will follow.
--- NOTE | 2016-09-21 15:02 | NUR ---
Significant Event: PT A/O X3, VSS, PT UP WITH INDEPENDENT IN ROOM AND HALLS W/ WALKER, PT AMBULATE IN HALLS MULTIPLE TIMES W/ WALKER - TOLERATE WELL. PT STATS APAP CONTROLL PAIN, TOLERATE DEIT WELL. LAP SITES CDI. FAMILY AT BEDSIDE OFF/ON THIS TOD. CALL LIGHT AND PERSONAL ITEMS IN REACH. QUESTIONS/CONCERNS ADDRESSED THIS TOD. Follow up:CONTINUE TO [place], CONTINUE PER PLAN OF CARE. POSSIBLE D/C THIS AFTERNOON/EVENING OR TOMORROW.
[2016-09-21] MEDS ORDERED: PROTONIX40 MG PO (18:10)
--- NOTE | 2016-09-21 19:35 | NUR ---
Pt was discharged to home @ 1845. Discharge instructions were given by Maribeth LANDIS to patient and . Pt to have a follow up appointment with Dr. Washington. Flu shot was given by Irina LANDIS. Pt was to be transported by private car to home. BP 155/77, HR 66, Temp 97.8,Resp 16.
== END 2016-09-21 19:44 | disposition disaster alternative care site (69) | DRG 417 ==
LOC: GMED 21:29 → GPCU 09-17 01:50
PROVIDERS: Emergency Medicine; Family Medicine; Internal Medicine; Nurse Practitioner Family; ADMIT Internal Medicine
PROC: 0F798DZ Dilation of Common Bile Duct with Intraluminal Device, Via Natural or Artificial Opening Endoscopic (ICD-10-PCS; principal; 2016-09-18)
PROC: 0FT44ZZ Resection of Gallbladder, Percutaneous Endoscopic Approach (ICD-10-PCS; 2016-09-20)
DX: K80.44 Calculus of bile duct with chronic cholecystitis without obstruction (principal); I26.99 Other pulmonary embolism without acute cor pulmonale; J96.01 Acute respiratory failure with hypoxia; Z90.79 Acquired absence of other genital organ(s); R21 Rash and other nonspecific skin eruption; I10 Essential (primary) hypertension; N40.1 Benign prostatic hyperplasia with lower urinary tract symptoms; K21.9 Gastro-esophageal reflux disease without esophagitis; T40.2X5A Adverse effect of other opioids, initial encounter; Z87.891 Personal history of nicotine dependence; K43.2 Incisional hernia without obstruction or gangrene; Z23 Encounter for immunization
CPT/HCPCS: C1769; C9113; G0008; J1100; J1200; J1644; J1940; J1956; J2001; J2250; J2270; J2405; J2550; J2920; J2930; J7030; J7050; J7120

== ENCOUNTER 2016-11-20 05:55 | Observation (INO) | payer MEDICARE, OTHER ==
[~2016-11-20] VITALS: Ht 177.8 cm; Wt 92.6 kg
--- NOTE | ~2016-11-20 | DS ---
PATIENT'S NAME: MARIETTA JIMENEZ [facility] AGE: 81 Y [address] ROOM: [place] [address] LOCATION: [facility] ADMIT DATE: 11/21/2016 Discharge Summary DISCHARGE DATE: 11/23/2016 FAMILY PHYSICIAN: Joe Galeas MD ATTENDING PHYSICIAN: Aubrey Kurtz DIAGNOSES: 1. Incisional hernia. 2. Urinary retention. PROCEDURE PERFORMED: Incisional hernia repair with mesh with Dr. Kurtz. SUMMARY: Marietta Jimenez is an 81-year-old male, who was admitted to on the morning of November 20, 2016, to undergo an incisional hernia repair. He received Ancef 2 g IV preoperatively. Please see Dr. Kurtz's operative note for specifics on the procedure. The patient was admitted to the medical-surgical unit postoperatively. He was allowed activity as tolerated. Vital signs were ordered. He was started on clear liquids and advanced as tolerated. [place] and Tylenol were ordered for pain control. Zofran for nausea. He was continued on his home medications. Later that day, the patient was unable to void, and a straight cath was done. On postop day #1, the patient was very sore. He had nausea and vomiting which he stated always happened with anesthetic. He continued to have some difficulty voiding. Vital signs were stable. Dilaudid was added for pain control. A postvoid bladder scan was completed which did show urinary retention and straight cath was repeated. Urinalysis was done which showed no signs of infection. On postop day #2, the patient was voiding better, nausea was better, white blood cell count was 9.4. He was still having problems mobilizing on his own and had concerns about going home alone. On postop day #3, the patient was feeling much better. Pain was under better control. He was tolerating diet. Arrangements were made for the patient to discharge home. DISCHARGE INSTRUCTIONS: Include no restrictions on diet. No lifting greater than 20 pounds for 6 weeks. He can remove the bandage on November 24. He is to follow up with Dr. Kurtz in 10-14 days. DISCHARGE MEDICATIONS: Includes resuming home medicines of: 1. Norvasc 5 mg p.o. q.h.s. 2. Nizoral 1 applicator topically daily to rash. 3. Protonix 40 mg p.o. daily. 4. Avapro 300 mg p.o. q.h.s. 5. Tylenol Extra Strength 1000 mg p.o. every 4 hours p.r.n. pain. Prescription was written for: PATIENT'S NAME: MARIETTA JIMENEZ [facility] AGE: 81 Y [address] ROOM: [place] [address] LOCATION: [facility] ADMIT DATE: 11/21/2016 Discharge Summary DISCHARGE DATE: 11/23/2016 FAMILY PHYSICIAN: Joe Galeas MD ATTENDING PHYSICIAN: Aubrey Kurtz 1. Arnold 5/325 one to two p.o. q.4 hours p.r.n. pain, dispensing #40 with no refills. 2. Flomax 0.4 mg one p.o. q.h.s. x14 days. For specifics on day-to-day care, please refer to the hospital chart. JONATHAN AYOUB PA-C FOR AUBREY KURTZ MD KDK/modl /[id number] d: 11/29/16 0334 t: 01/03/17 1743, DISCHARGE SUMMARY
--- NOTE | ~2016-11-20 | OR ---
PATIENT'S NAME: MARIETTA JIMENEZ [facility] AGE: 81 Y [address] ROOM: [address] [place] [address] [place] [facility] [place] DATE: 11/20/2016 OR/Procedure Report DISCHARGE DATE: FAMILY PHYSICIAN: Joe Galeas MD ATTENDING PHYSICIAN: Aubrey Kurtz SURGEON: Aubrey Kurtz MD RAILROAD FIRER: Shad Mclean PA-C. DATE OF PROCEDURE: 11/20/2016 PREOPERATIVE DIAGNOSIS: Epigastric incisional hernia in supraumbilical location. POSTOPERATIVE DIAGNOSIS: Supraumbilical epigastric incisional hernia with 6 cm diameter fascial defect. PROCEDURE PERFORMED: Incisional herniorrhaphy with material ST hernia patch, 14.5 x 11 cm oval, composite. ANESTHESIA: General with 20 mL of 0.5% Marcaine local. SPECIMEN: Hernia sac, skin. INDICATION: The patient is an 81-year-old gentleman status post a previous robotic prostatectomy. He had a supraumbilical midline trocar incision, which has enlarged into a fascia defect. He has reducible, but large supraumbilical incisional hernia. He wishes operative repair. DESCRIPTION OF PROCEDURE: After informed consent, the patient was taken to the operating room. After general endotracheal anesthesia, the patient's abdomen was prepped and draped into a sterile field. Time-out performed. We identified the patient and planned procedure and confirmation of administration of preop antibiotics. We inspected the wound and the hernia was reducible. The defect was approximately 6 cm in diameter. He had a very redundant skin due to the protrusion of the hernia for a long period of time. He had wasting of the subcutaneous tissue and it was felt that re-excision of the skin including the umbilicus was necessary for proper closure. Therefore, we marked preop excisional lines of excision, full-thickness skin incision and created the hernia sac was mm below the skin, we entered in the midline. We took down adhesions of some omentum and reduced the colon and small bowel content. We then excised the full thickness of skin that is preoperatively planned. We then freed up the undersurface of the abdominal wall and took down adhesions of omentum. We chose our mesh based on the size. We placed the oval composite mesh into the peritoneal cavity, a smooth surface toward the bowel. We did four quadrant tacking of the bowel through and through fascia and through and through mesh in all 4 quadrants, 1 inch from the PATIENT'S NAME: MARIETTA JIMENEZ [facility] AGE: 81 Y [address] ROOM: [address] [address] [place] [facility] [place]: 11/20/2016 OR/Procedure Report DISCHARGE DATE: FAMILY PHYSICIAN: Joe Galeas MD ATTENDING PHYSICIAN: Aubrey Kurtz fascial border. We then used the auto suture Tacker to circumferentially go around to tack up the mesh of the anterior abdominal wall. We then used interrupted 0 Prolene to additionally secure the mesh to the anterior abdominal wall in each quadrant. We excised the excessive redundant fascia and closed the midline fascia attenuated over the mesh with interrupted 2-0 Vicryl to prevent communication with the soft tissue space. Once the hernia was repaired, we looked at our closure. We gradually closed down the subcutaneous fascia defect with interrupted 2-0 and 3-0 Vicryl. We excised this slightly more portion of skin in order to have a flush closure of the skin. The skin was closed with subcuticular 4-0 Vicryl. Steri-Strips and sterile dressings were applied. The patient tolerated the procedure well and transferred to recovery in stable condition. AUBREY KURTZ MD WTS/modl /[id number] d: 11/20/16 1000 t: 11/27/16 1002, OPERATIVE SUMMARY
--- NOTE | ~2016-11-20 | DS ---
PATIENT'S NAME: MARIETTA JIMENEZ [facility] AGE: 81 Y [address] ROOM: [place] [address] LOCATION: [facility] [place] ADMIT DATE: 11/21/2016 Discharge Summary DISCHARGE DATE: 11/23/2016 FAMILY PHYSICIAN: Joe Galeas MD ATTENDING PHYSICIAN: Aubrey Kurtz DIAGNOSES: 1. Incisional hernia. 2. Urinary retention. PROCEDURE PERFORMED: Incisional hernia repair with mesh with Dr. Kurtz. SUMMARY: Marietta Jimenez is an 81-year-old male, who was admitted to [facility] on the morning of November 20, 2016, to undergo an incisional hernia repair. He received Ancef 2 g IV preoperatively. Please see Dr. Kurtz's operative note for specifics on the procedure. The patient was admitted to the medical-surgical unit postoperatively. He was allowed activity as tolerated. Vital signs were ordered. He was started on clear liquids and advanced as tolerated. [place] and Tylenol were ordered for pain control. Zofran for nausea. He was continued on his home medications. Later that day, the patient was unable to void, and a straight cath was done. On postop day #1, the patient was very sore. He had nausea and vomiting which he stated always happened with anesthetic. He continued to have some difficulty voiding. Vital signs were stable. Dilaudid was added for pain control. A postvoid bladder scan was completed which did show urinary retention and straight cath was repeated. Urinalysis was done which showed no signs of infection. On postop day #2, the patient was voiding better, nausea was better, white blood cell count was 9.4. He was still having problems mobilizing on his own and had concerns about going home alone. On postop day #3, the patient was feeling much better. Pain was under better control. He was tolerating diet. Arrangements were made for the patient to discharge home. DISCHARGE INSTRUCTIONS: Include no restrictions on diet. No lifting greater than 20 pounds for 6 weeks. He can remove the bandage on November 24. He is to follow up with Dr. Kurtz in 10-14 days. DISCHARGE MEDICATIONS: Includes resuming home medicines of: 1. Norvasc 5 mg p.o. q.h.s. 2. Nizoral 1 applicator topically daily to rash. 3. Protonix 40 mg p.o. daily. 4. Avapro 300 mg p.o. q.h.s. 5. Tylenol Extra Strength 1000 mg p.o. every 4 hours p.r.n. pain. Prescription was written for: PATIENT'S NAME: MARIETTA JIMENEZ [facility] AGE: 81 Y [address] ROOM: [place] [address] LOCATION: [facility] [place] ADMIT DATE: 11/21/2016 Discharge Summary DISCHARGE DATE: 11/23/2016 FAMILY PHYSICIAN: Joe Galeas MD ATTENDING PHYSICIAN: Aubrey Kurtz 1. [place] 5/325 one to two p.o. q.4 hours p.r.n. pain, dispensing #40 with no refills. 2. Flomax 0.4 mg one p.o. q.h.s. x14 days. For specifics on day-to-day care, please refer to the hospital chart. JONATHAN AYOUB PA-C FOR AUBREY KURTZ MD KDK/modl /[id number] d: 11/29/16 0334 t: 11/30/16 1021, DISCHARGE SUMMARY
[~2016-11-20 05:55] MED LIST changes: +PROTONIX40 MG PO; +TYLENOL EXTRA500 MG PO; +TYLENOL WITH C1 EACH PO
--- NOTE | 2016-11-20 15:30 | NUR ---
Introduced self/role to patient. Lives alone in [place]. Denied any needs at home or the need for any DME. Has family that will give him a ride home. Added my name to his marker board, will continue to follow.
--- NOTE | 2016-11-20 16:54 | NUR ---
Significant Event: Patient is alert and oriented x3. Very [place]. VSS and titrated to RA. Arrived to the floor around 11. Midlline abdominal incision- dressing to be changed soon. Around 1400 patient tried to void and had not voided since surgery- unable to void- bladder scanned for 866ml. notified and ordered a one time straight catheter- 500 out. Order is to be up as soon as possible- tried getting up to void and was in excruiating pain. Patient resting at this time. Needs to try again later. Last [place] at 1357, is requesting a norco at 1800. L)wrist IV, fluids infusing. Cooperative with cares. Follow Up: Pain control, ambulation, urination
--- NOTE | 2016-11-21 04:11 | NUR ---
Significant Event: AAOX3, VERY [place]. NPO STATUS DUE TO NAUSEA/EMESIS LAST NIGHT, ABD ROUND/DISTENDED. PT AMBULATED IN BACH X2 DURING SHIFT, TOLERATED FAIRLY WELL. VSS ON RA. 1 VOID DURING SHIFT WITH 250ML OUT, POST VOID BLADDER SCAN OF 358ML. CHARGE NURSE AWARE. ZOFRAN ADMINISERED LAST AT 1755, NORCO ADMINISTERED X1 AT 2146. [facility] AT BEDSIDE. Follow up:
[2016-11-21 12:51] LABS: BILIRUBIN URINE NEGATIVE (NEGATIVE); BLOOD URINE 10 /UL (NEGATIVE); COLOR URINE YELLOW (YELLOW); GLUCOSE URINE NEGATIVE (NEGATIVE); KETONE URINE NEGATIVE (NEGATIVE); LEUKOCYTES URINE NEGATIVE /UL (NEGATIVE); NITRITE URINE NEGATIVE (NEGATIVE); PROTEIN URINE 30 mg/dL (NEGATIVE); SPEC GRAVITY URINE 1.025 (1.003-1.035); TURBIDITY URINE CLEAR (CLEAR); UROBILINOGEN URINE NORMAL (NORMAL)
[2016-11-21 13:23] LABS: BACTERIA URINE NEGATIVE (NEGATIVE); EPITHELIAL URINE RARE #/HPF (NEGATIVE); RBC URINE 0-2 #/HPF (NEGATIVE)
--- NOTE | 2016-11-21 16:24 | NUR ---
Significant Event: Patient is alert and oriented x3. VSS. on room air. Dressing to abd is intact with small amount of shadow drainage. IV to left wrist is saline locked. Is very hard of hearing, is good at reading lips if speak directly toward him. Is tolerating liquids today with no vomiting. Gave crackers and 7-up with [place]. Is going to try a full liquid tray for supper. Ambulated in hallways x2 with stand by assist. Did a straight cath this morning for residual of 450 after 250 void. Got 375 out and sent UA. Pt has voided well this afternoon. Bowel sounds present. Cooperative with cares.
--- NOTE | 2016-11-22 04:17 | NUR ---
Significant Event: Patient alert and oriented X4. Up with stand by assit, walker and gait belt. Voiding better this shift. Midline incision with small amount of drainage. Did not change dressing. Lane given X1 around 2114. Reliet noted. Vitals stable and on room air. Able to sleep well tonight. Had full liquids for supper and tolerated well. Diet as tolerated. Fell on 11/13. Possibly could go home today. Started on flomax. Needs to walk! Wants Lane before walks. L) wrist saline lock Follow up: Monitor dressing
[2016-11-22 05:21] LABS: BASOPHIL % 0.3 %; EOSINOPHIL # 0.2 K/uL (0.0-0.5); EOSINOPHIL % 2.1 %; HEMATOCRIT 44.8 % (33.0-50.0); HEMOGLOBIN 14.4 g/dL (11.0-16.0); IMMATURE GRANULOCYTE % 0.3 %; MCH 29.8 pg (27.0-34.0); MCHC 32.1 gm/dL (32.0-36.5); MONOCYTE # 0.8 K/uL (0.0-1.0); MPV 8.6 fl (9.4-12.4); NEUTROPHIL # (ANC) 6.3 K/uL (1.4-9.0); NEUTROPHIL % 67.3 %; NRBC % 0 /100WBC (0-0.00); PLATELET COUNT 162 K/uL (150-450); RBC 4.83 M/uL (3.50-5.50); RDW-CV 15.2 % (11.9-14.6); WBC 9.4 K/uL (4.0-11.0)
[2016-11-22 05:22] LABS: MCV 92.8 fl (83.0-98.0)
[2016-11-22 05:33] LABS: ALBUMIN 3.1 gm/dL (3.5-5.0); BLOOD UREA NITROGEN 14 mg/dL (6-24); CALCIUM 8.4 mg/dL (8.5-10.5); CHLORIDE 106 mMol/L (96-110); CO2 25 mMol/L (22-32); CREATININE 0.8 mg/dL (0.6-1.3); ESTIMATED GFR (MDRD EQUATION) > 60; PHOSPHORUS 2.4 mg/dL (2.5-4.9); SODIUM 140 mMol/L (135-145)
--- NOTE | 2016-11-22 12:15 | NUR ---
Followed up with patient regarding home needs. Still denied any needs. States he will be fine when he gets home but today he is feeling nausea. His nurse is suppose to bring him something. He would like to go home tomorrow. Followed up with his nurse Robyn about the nausea.
--- NOTE | 2016-11-22 19:34 | NUR ---
Significant event: Patient is alert and oriented. VSS. on room air. IV to right forearm. Has had zofran x1 today. And norco x2 last around 1800. Has been up and ambulating independently using wheeled walker this afternoon. Voiding well, passing flatus too. Dressing to abd was changed and is C/D/I. Has tolerated full liquids meals today. Patient states that is just enough for him. Does not have a big appetite yet. Needs to eat something like crackers when taking the norco, to prevent nausea. Is very hard of hearing, need to talk directly to him, so can read your lips. IV is saline locked. Sat up in chair for awhile, tolerated well. Cooperative with cares.
--- NOTE | 2016-11-23 06:05 | NUR ---
Pt. AA&OX3. RA. Cooperative with cares. KALTAG. Ambulated in choud[place]ury x2 with 1assist, walker and gaitbelt. R) AC IV saline locked. Abdominal midline incision with gauze and tegaderm. No PRN given this shift. VSS. Slept well tonight. Tolerating full liquid diet well. Possible discharge today.
[2016-11-23] MEDS ORDERED: NORCO 5-325 TA1 EACH PO (12:15)
[2016-11-23] MEDS ORDERED: FLOMAX0.4 MG PO (12:15)
--- NOTE | 2016-11-23 14:33 | NUR ---
Significant Event: Pt denies pain. up ad león in room/halls. Dressing to lower abd d/i. Had a bm today. Tolerating regular diet. Dc to home at 1300. States understanding of all dc instructions and care of incision. Follow up:
--- NOTE | 2016-11-23 16:17 | NUR ---
DISCHARGE: Pt. was explained discharge instructions, educated on new medications: flomax and norco, and educated on hernia repair d/c instructions. Verbalized understanding, no questions or concerns. Wallet returned from safe. Left with all belongings and prescriptions. IV removed by primary nurse. Patient left at 1300 to front door with aide and driven home by friend.
== END 2016-11-23 13:00 | disposition disaster alternative care site (69) ==
LOC: GSDC 05:55 → GMSU 05:55 → GSDC 06:00 → GMSU 11:48 → GSDC 14:00 → GMSU 11-21 10:15 → GSDC 11-21 10:15 → GMSU 11-23 13:00
PROVIDERS: Physician Assistant; ADMIT Surgery
PROC: 0WQF0ZZ Repair Abdominal Wall, Open Approach (ICD-10-PCS; principal; 2016-11-20)
DX: K43.2 Incisional hernia without obstruction or gangrene (principal); I10 Essential (primary) hypertension; Z90.49 Acquired absence of other specified parts of digestive tract
CPT/HCPCS: C1781; G0378; J0690; J1100; J2250; J2405; J3010; J7042; J7120